=== PATIENT | male | born 1990 | race Caucasian/White ===

== ENCOUNTER → 2019-06-24 | Outpatient (CLI) | payer BC | LOC: HYPER 03-21 10:52 | DX: T81.89XA Other complications of procedures, not elsewhere classified, initial encounter (principal); L05.91 Pilonidal cyst without abscess; Y92.89 Other specified places as the place of occurrence of the external cause; Y83.8 Other surgical procedures as the cause of abnormal reaction of the patient, or of later complication, without mention of misadventure at the time of the procedure ==

== ENCOUNTER → 2019-07-03 | Outpatient (CLI) | payer BC, OTHER | LOC: HYPER 06:53 | DX: T81.89XD Other complications of procedures, not elsewhere classified, subsequent encounter (principal); L05.91 Pilonidal cyst without abscess; Y83.8 Other surgical procedures as the cause of abnormal reaction of the patient, or of later complication, without mention of misadventure at the time of the procedure ==

== ENCOUNTER → 2019-07-18 | Outpatient (CLI) | payer BC, OTHER | LOC: HYPER 07-16 07:37 | DX: T81.89XD Other complications of procedures, not elsewhere classified, subsequent encounter (principal); L05.91 Pilonidal cyst without abscess; Y83.8 Other surgical procedures as the cause of abnormal reaction of the patient, or of later complication, without mention of misadventure at the time of the procedure ==

== ENCOUNTER → 2019-08-06 | Outpatient (CLI) | payer BC, OTHER | LOC: HYPER 06:53 | DX: T81.89XD Other complications of procedures, not elsewhere classified, subsequent encounter (principal); L05.91 Pilonidal cyst without abscess; Y83.8 Other surgical procedures as the cause of abnormal reaction of the patient, or of later complication, without mention of misadventure at the time of the procedure ==

== ENCOUNTER → 2019-08-21 | Outpatient (CLI) | payer BC, OTHER | LOC: HYPER 07:15 | DX: T81.89XD Other complications of procedures, not elsewhere classified, subsequent encounter (principal); L05.91 Pilonidal cyst without abscess; Y83.8 Other surgical procedures as the cause of abnormal reaction of the patient, or of later complication, without mention of misadventure at the time of the procedure ==

== ENCOUNTER → 2019-09-17 | Outpatient (CLI) | payer BC, OTHER | LOC: HYPER 05:38 | DX: T81.89XD Other complications of procedures, not elsewhere classified, subsequent encounter (principal); L05.91 Pilonidal cyst without abscess; Y83.8 Other surgical procedures as the cause of abnormal reaction of the patient, or of later complication, without mention of misadventure at the time of the procedure ==